=== PATIENT | female | born 1945 | race Caucasian/White ===

== ENCOUNTER 2017-10-16 13:48 | Outpatient (CLI) | payer MEDICARE ==
--- NOTE | 2017-10-16 16:10 | XRAY Report ---
Procedure Date: 10/16/2017 Accession Number: [id number] / [id number] Procedure: XRS - Wrist 4 View RT CPT Code: FULL RESULT: EXAM: Wrist 4 View RT DATE: 10/16/2017 2:12 PM CLINICAL HISTORY: PAIN DECREASE ROM COMPARISON: None TECHNIQUE: 4 view right wrist FINDINGS: Mild osteoarthritis of the first carpometacarpal joint. No evidence of acute fracture or dislocation. No foreign body. IMPRESSION: Mild osteoarthritis.
--- NOTE | 2017-10-16 16:10 | XRAY Report ---
Procedure Date: 10/16/2017 Accession Number: [id number] / [id number] Procedure: XRS - Hand 3 View RT CPT Code: FULL RESULT: EXAM: Hand 3 View RT DATE: 10/16/2017 2:13 PM CLINICAL HISTORY: PAIN DECREASE ROM COMPARISON: None TECHNIQUE: 3 view right hand FINDINGS: Osteoarthritic changes of the interphalangeal joints. There is no evidence of acute fracture or dislocation. No foreign body. IMPRESSION: Osteoarthritis.
== END 2017-10-16 13:49 | disposition home or self-care (01) ==
LOC: DI.S 13:48
PROVIDERS: ATTEND Physician Assistant
DX: M19.041 Primary osteoarthritis, right hand (principal); M19.031 Primary osteoarthritis, right wrist

== ENCOUNTER 2019-03-26 11:28 | Outpatient (CLI) | payer MEDICARE ==
--- NOTE | 2019-03-27 08:56 | Mammography Report ---
Reason: ROUTINE MAMMO Procedure Date: 03/26/2019 Accession Number: [id number] / [id number] Procedure: MGS - Screening Mammo Dig Bilat CPT Code: Final Report FULL RESULT: EXAM: Screening Mammo Dig Bilat DATE: 03/26/2019 11:51 AM CLINICAL HISTORY: Screening encounter. Family history of breast cancer in the mother at the age of 68. TECHNIQUE: (B) - Bilateral CC, laterally exaggerated CC, MLO views were obtained. COMPARISON: 02/27/2013. PARENCHYMAL PATTERN: (A) - The breast(s) demonstrate(s) scattered fibroglandular densities. FINDINGS: Previously seen calcifications in the retroareolar left breast as seen on MLO projection have increased, grouping resides approximately 2.6 cm from the nipple, likely in the medial retroareolar breast on CC view. Additional spot magnification views for characterization are recommended, apparent interval increase in conspicuity is potentially due to significant decrease in breast density between 2012 at 2019. There are no suspicious masses areas of distortion. No suspicious right breast calcifications. IMPRESSION: Incomplete examination. BI-RADS category 0. RECOMMENDATION: (ADDMAM) - Recommend additional mammographic views. BI-RADS CATEGORY: (0) - Incomplete Examination - need additional evaluation. STANDARD QUALIFYING STATEMENTS: 1. This examination was reviewed with the aid of Computer-Aided Detection (CAD). 2. A negative or benign imaging report should not preclude biopsy if clinically suspicious findings are present. 3. Dense breasts may obscure an underlying neoplasm. 4. This examination was reviewed without the aid of 3D breast imaging (tomosynthesis).
== END 2019-03-26 11:29 | disposition home or self-care (01) ==
LOC: DI.S 11:28
PROVIDERS: ATTEND Nurse Practitioner Family
DX: Z12.31 Encounter for screening mammogram for malignant neoplasm of breast (principal); R92.1 Mammographic calcification found on diagnostic imaging of breast; Z80.3 Family history of malignant neoplasm of breast
CPT/HCPCS: 77067

== ENCOUNTER 2021-03-09 08:36 | Day surgery (SDC) | payer MEDICARE ==
[2021-03-09] MEDS ORDERED: LACTATED RINGERS 1,000 ML IV ONE ×2 (09:13→10:52)
--- NOTE | 2021-03-09 09:36 | ANESTHESIA ---
Pre-Anesthesia VS, & Labs - Diagnosis history of colon cancer, screening exam - Procedure colonoscopy Vital Signs: Temp Pulse Resp BP Pulse Ox 36.8 C 69 11 L 119/73 97 03/09/21 08:50 03/09/21 08:50 03/09/21 08:50 03/09/21 08:50 03/09/21 08:50 Height: 5 ft 2 in Weight (kg): 64 kg Body Mass Index: 25.8 BMI Classification: Overweight - NPO >8 hours - Is Patient ?: No Home Medications and Allergies Home Medications: Ambulatory Orders Digestive 8/L.acidoph/Pectin [Digestive Enzymes Tablet] 1 tab PO DAILY 03/08/21 Lactobacillus Combination No.4 [Probiotic] 1 cap PO DAILY 03/08/21 Magnesium 250 mg PO DAILY 03/08/21 Sertraline [Zoloft] 50 mg PO DAILY 03/08/21 Digestive 8/L.acidoph/Pectin [Digestive Enzymes Tablet] 1 tab PO DAILY 03/08/21 Lactobacillus Combination No.4 [Probiotic] 1 cap PO DAILY 03/08/21 Magnesium 250 mg PO DAILY 03/08/21 Sertraline [Zoloft] 50 mg PO DAILY 03/08/21 Allergies/Adverse Reactions: Allergies Allergy/AdvReac Type Severity Reaction Status Date / Time acyclovir Allergy Headache Verified 03/08/21 12:35 morphine AdvReac Unknown Verified 03/08/21 12:35 Anes History & Medical History - Anesthetic History Anesthesia Complications: reports: No previous complications - Medical History Cardiovascular: reports: Murmur (no issues found on ECHO) Pulmonary: reports: None Gastrointestinal: reports: Colon polyps, Chronic constipation Urinary: reports: None Neuro: reports: None Musculoskeletal: reports: Osteoarthritis, Other Endocrine/Autoimmune: reports: HyPOthyroidism Blood Disorders: reports: None Skin: reports: None Smoking Status: Current every day smoker (1/2-1 pack per day for 50 years) Psychosocial: reports: Depression History of Cancer?: Yes (chemo) - Surgical History General: reports: Bowel surgery, Colonoscopy, Other Gynecologic: reports: section, Tubal ligation, Oophrectomy Orthopedic: reports: Hip replacement Exam General: Alert, Oriented x3, Cooperative, No acute distress Dental: WNL Mouth Openin Fingerbreadth Neck Mobility: Normal Mallampati classification: II Thyromental Distance: 4-6 cm Mental/Cognitive Status: Alert/Oriented X3, Normal for patient Plan Anesthesia Type: Total IV Consent for Procedure(s) Verified and Reviewed: Yes Code Status: Attempt Resuscitation ASA classification: 2-Mild systemic disease Is this case an emergency?: No
[2021-03-09] MEDS ORDERED: fentaNYL 100 MCG/2 ML VIAL ONE (10:03)
[2021-03-09] MEDS ORDERED: PROPOFOL 200 MG/20 ML VIAL IVP ONE (10:03)
--- NOTE | 2021-03-09 10:59 | ANESTHESIA POST OP EVALUATION ---
Anesthesia Post Eval - Post Anesthesia Eval Vitals: Last Vital Signs Temp 36.5 C 03/09/21 10:52 Pulse 75 03/09/21 10:56 Resp 16 03/09/21 10:56 BP 115/72 03/09/21 10:56 Pulse Ox 97 03/09/21 10:56 CV Function Including HR & BP: Stable Pain Control: Satisfactory Nausea & Vomiting: Negative Mental Status: Baseline Respiratory Status: Airway Patent Hydration Status: Satisfactory Anesthesia Complications: None
[2021-03-09 11:14] VITALS: BP 111/89
== END 2021-03-09 08:37 | disposition home or self-care (01) ==
LOC: SDS 08:36
PROVIDERS: ATTEND Surgery
PROC: 0DJD8ZZ Inspection of Lower Intestinal Tract, Via Natural or Artificial Opening Endoscopic (ICD-10-PCS; principal; 2021-03-09 09:45)
DX: Z12.11 Encounter for screening for malignant neoplasm of colon (principal); K64.8 Other hemorrhoids; K59.09 Other constipation; F17.210 Nicotine dependence, cigarettes, uncomplicated; Z85.038 Personal history of other malignant neoplasm of large intestine
CPT/HCPCS: 45330; J7120

== ENCOUNTER 2021-03-10 08:44 | Day surgery (SDC) | payer MEDICARE ==
[2021-03-10] MEDS ORDERED: LACTATED RINGERS 1,000 ML IV ONE ×2 (08:53→10:51)
--- NOTE | 2021-03-10 09:31 | ANESTHESIA ---
Pre-Anesthesia VS, & Labs - Diagnosis screening, hx of colon cancer - Procedure colonoscopy Vital Signs: Temp Pulse Resp BP Pulse Ox 36.4 C L 65 16 115/72 97 03/10/21 09:07 03/10/21 09:07 03/10/21 09:07 03/10/21 09:07 03/10/21 09:07 Height: 5 ft 2 in Weight (kg): 63.2 kg Body Mass Index: 25.4 BMI Classification: Overweight - NPO >8 hours - Is Patient ?: No - Lab Results Lab results reviewed: Yes Home Medications and Allergies Digestive 8/L.acidoph/Pectin [Digestive Enzymes Tablet] 1 tab PO DAILY 03/08/21 Lactobacillus Combination No.4 [Probiotic] 1 cap PO DAILY 03/08/21 Magnesium 250 mg PO DAILY 03/08/21 Sertraline [Zoloft] 50 mg PO DAILY 03/08/21 Allergies/Adverse Reactions: Allergies Allergy/AdvReac Type Severity Reaction Status Date / Time acyclovir Allergy Headache Verified 03/08/21 12:35 morphine AdvReac Unknown Verified 03/08/21 12:35 Anes History & Medical History - Anesthetic History Anesthesia Complications: reports: No previous complications Family history of Anesthesia Complications: Denies Family history of Malignant Hyperthermia: Denies - Medical History Cardiovascular: reports: Murmur Pulmonary: reports: None Gastrointestinal: reports: Colon polyps, Chronic constipation Urinary: reports: None Neuro: reports: None Musculoskeletal: reports: Osteoarthritis, Other Endocrine/Autoimmune: reports: HyPOthyroidism Blood Disorders: reports: None Skin: reports: None Smoking Status: Current every day smoker (1/2-1 pack per day for 50 years) - Surgical History General: reports: Bowel surgery, Colonoscopy, Other Gynecologic: reports: section, Tubal ligation, Oophrectomy Orthopedic: reports: Hip replacement Exam General: Alert, Oriented x3, Cooperative, No acute distress Dental: WNL Mouth Openin Fingerbreadth Neck Mobility: Normal Mallampati classification: II Respiratory: Lungs clear, Normal breath sounds, No respiratory distress, No accessory muscle use Cardiovascular: Regular rate, Normal S1, Normal S2, No murmurs Plan Anesthesia Type: General, Total IV Consent for Procedure(s) Verified and Reviewed: Yes Code Status: Attempt Resuscitation ASA classification: 2-Mild systemic disease Is this case an emergency?: No
[2021-03-10] MEDS ORDERED: GLYCOPYRROLATE 1 MG/5 ML VIAL ONE (10:46)
[2021-03-10] MEDS ORDERED: ePHEDrine 50 MG/ML VIAL IVP ONE (10:46)
--- NOTE | 2021-03-10 10:49 | ANESTHESIA POST OP EVALUATION ---
Anesthesia Post Eval - Post Anesthesia Eval Vitals: Last Vital Signs Temp 36.4 C L 03/10/21 09:07 Pulse 65 03/10/21 09:07 Resp 16 03/10/21 09:07 BP 115/72 03/10/21 09:07 Pulse Ox 97 03/10/21 09:07 CV Function Including HR & BP: Stable Pain Control: Satisfactory Nausea & Vomiting: Negative Mental Status: Baseline Respiratory Status: Airway Patent Hydration Status: Satisfactory Anesthesia Complications: None
[2021-03-10 11:08] VITALS: BP 112/70
== END 2021-03-10 08:45 | disposition home or self-care (01) ==
LOC: SDS 08:44
PROVIDERS: ATTEND Surgery
DX: Z12.11 Encounter for screening for malignant neoplasm of colon (principal); K59.09 Other constipation; E03.9 Hypothyroidism, unspecified; F17.210 Nicotine dependence, cigarettes, uncomplicated; Z85.038 Personal history of other malignant neoplasm of large intestine
CPT/HCPCS: G0105; J7120